=== PATIENT | male | born 1975 | race Two or more races ===

== ENCOUNTER 2024-05-20 13:55 | Day surgery (SDC) | payer MEDICAID, SELFPAY ==
[2024-05-19 13:50] VITALS: BMI 33.6
[2024-05-20] VITALS (10 sets, daily range): BP systolic 94–140; BP diastolic 58–94; PULSE 66–101; RESP 14–21; TEMP 36.2–36.7; O2SAT 94–99; BMI 32.8
[2024-05-20] MEDS: RINGERS LACTATED 1000 ML 1,000 ML 60 ML IV (15:00)
[2024-05-20] MEDS: MIDAZOLAM INJ 1 MG/ML VIAL 2 ML (ASD USE ONLY) 2 MG IV (15:05)
[2024-05-20] MEDS: fentaNYL CIT INJ 50 mCg/ML AMP 2ML (ASD USE ONLY) IV (15:07)
== END 2024-05-20 16:11 | disposition home or self-care (01) ==
PROVIDERS: Referring Provider Surgery; Visit Provider Surgery
PROC: 0DBE8ZX Excision of Large Intestine, Via Natural or Artificial Opening Endoscopic, Diagnostic (ICD-10-PCS; CPT 45380; principal; 2024-05-20 14:30)
DX: Z12.11 Encounter for screening for malignant neoplasm of colon (principal)
CPT/HCPCS: 45378; J2250; J3010; J7120